=== PATIENT | male | born 1970 | race African-American/Black ===

== ENCOUNTER 2019-02-01 09:56 | Emergency (ER) | payer MEDICAID ==
[~2019-02-01] VITALS: Ht 180.3 cm; Wt 87.0 kg
[2019-02-01] MEDS ORDERED: SODIUM CHLORIDE 0.9% 1,000 ML IV ONE (11:18)
[2019-02-01 11:48] LABS: HEMATOCRIT. 49.4 % (42.0-52.0); HEMOGLOBIN. 16.5 g/dL (14.0-18.0); MEAN CORPUSCULAR VOLUME 98.4 fL (80.0-94.0); MEAN PLATELET VOLUME 10.1 fl (7.4-10.4); PLATELET 176 x1000/uL (130-400); RED BLOOD CELL COUNT 5.02 mill/uL (4.7-6.1); RED CELL DISTRIBUTION WIDTH 12.8 % (11.6-14.6)
[2019-02-01 11:50] LABS: CHLORIDE 104 mEq/L (98-107)
[2019-02-01 11:56] LABS: ETHANOL BLOOD < 10 mg/dL
[2019-02-01 12:18] LABS: PLATELET ESTIMATE NORMAL
[2019-02-01 12:26] LABS: CLARITY URINE CLEAR (CLEAR); COLOR URINE YELLOW (YELLOW); KETONES URINE NEGATIVE (NEGATIVE); LEUKOCYTE ESTERASE URINE NEGATIVE (NEGATIVE); NITRITE URINE NEGATIVE (NEGATIVE); OCCULT BLOOD URINE NEGATIVE (NEGATIVE); PH URINE 6.5 (4.5-8.0); PROTEIN URINE NEGATIVE (NEGATIVE); SPECIFIC GRAVITY URINE 1.013 (1.005-1.030); UROBILINOGEN URINE 0.2 E.U./dL (0.2-1.0)
[2019-02-01 12:36] LABS: *AMPHETAMINES SCREEN URINE NEGATIVE (NEGATIVE); *BARBITURATES SCREEN URINE NEGATIVE (NEGATIVE); *BENZODIAZEPINES SCREEN URINE NEGATIVE (NEGATIVE); *COCAINE SCREEN URINE NEGATIVE (NEGATIVE)
[2019-02-01 12:37] LABS: CANNABINOID URINE SCREEN NEGATIVE (NEGATIVE); METHADONE URINE SCREEN NEGATIVE (NEGATIVE); OPIATES URINE SCREEN NEGATIVE (NEGATIVE); PHENCYCLIDINE URINE SCREEN NEGATIVE (NEGATIVE)
[2019-02-01 17:00] VITALS: BP 118/81
== END 2019-02-01 17:53 | disposition short-term general hospital (02) ==
LOC: ER 09:56
DX: R55 Syncope and collapse (principal); R42 Dizziness and giddiness; Z98.890 Other specified postprocedural states
CPT/HCPCS: 36415; 71045; 80053; 80165; 80305; 80320; 81003; 82962; 83690; 83880; 84484; 85025; 85610; 85730; 93005; 96360; 99285; J7030; Z7610; G0480